=== PATIENT | female | born 1945 | race African-American/Black ===

== ENCOUNTER 2016-12-21 12:24 | Emergency (ER) | payer OTHER ==
[~2016-12-21] VITALS: Ht 172.7 cm; Wt 54.4 kg
[~2016-12-21 12:24] MED LIST: ALEVE220 MG PO; AMLODIPINE BESYL5 MG PO; ATIVAN0.5 MG PO; AUGMENTIN 875875 MG PO; CALCIUM 600 +1 EA11 PO; COLACE100 MG PO; EFFEXOR XR75 MG PO; HYDROCODON-ACE1 EAC7 PO; LAMOTRIGINE100 M1 PO; NORFLEX100 MG PO; PREMARIN1.25 MG PO; PRILOSEC20 MG PO; TRAMADOL 50 MG50 MG PO; VITAMIN D1000 UNI1 PO
[2016-12-21] MEDS ORDERED: MEDROL DOSPAK21 TAB PO (13:30)
== END 2016-12-21 14:09 | disposition home or self-care (01) ==
LOC: ER 12:24
DX: S51.812A Laceration without foreign body of left forearm, initial encounter (principal); L30.9 Dermatitis, unspecified; I10 Essential (primary) hypertension; F32.9 Major depressive disorder, single episode, unspecified; M81.0 Age-related osteoporosis without current pathological fracture; F43.10 Post-traumatic stress disorder, unspecified; F10.99 Alcohol use, unspecified with unspecified alcohol-induced disorder; Z98.890 Other specified postprocedural states; Z90.49 Acquired absence of other specified parts of digestive tract; Z88.5 Allergy status to narcotic agent; Z88.8 Allergy status to other drugs, medicaments and biological substances; W18.09XA Striking against other object with subsequent fall, initial encounter; Y93.89 Activity, other specified; Y92.89 Other specified places as the place of occurrence of the external cause; Y99.8 Other external cause status

== ENCOUNTER 2017-02-01 19:56 | Emergency (ER) | payer OTHER ==
[~2017-02-01] VITALS: Ht 167.6 cm; Wt 49.9 kg
[~2017-02-01 19:56] MED LIST changes: +MEDROL DOSPAK21 TAB PO
[2017-02-01] MEDS ORDERED: VITAMIN C500 M1 PO (20:25)
[2017-02-01] MEDS ORDERED: ULTRAM 50MG TAB50 MG PO (20:40)
== END 2017-02-01 20:54 | disposition home or self-care (01) ==
LOC: ER 19:56
DX: M13.861 Other specified arthritis, right knee (principal); I10 Essential (primary) hypertension; F43.10 Post-traumatic stress disorder, unspecified; F32.9 Major depressive disorder, single episode, unspecified; M81.0 Age-related osteoporosis without current pathological fracture; F17.210 Nicotine dependence, cigarettes, uncomplicated; F10.99 Alcohol use, unspecified with unspecified alcohol-induced disorder; Z90.49 Acquired absence of other specified parts of digestive tract; Z88.8 Allergy status to other drugs, medicaments and biological substances; Z88.5 Allergy status to narcotic agent